=== PATIENT | female | born 1965 | race Caucasian/White ===

== ENCOUNTER → 2018-03-12 | Outpatient (CLI) | payer OTHER ==
--- NOTE | 2018-03-16 11:29 | MM ---
Reason for exam: screening (asymptomatic). Last mammogram was performed 5 years and 2 months ago. History: Family history of breast cancer in maternal aunt. Took hormonal contraceptives for 19 years beginning at age 17. Physical Findings: A clinical breast exam by your physician is recommended on an annual basis and results should be correlated with mammographic findings. MG Screening Mammo w CAD Bilateral CC and MLO view(s) were taken. Prior study comparison: January 06, 2013, bilateral digital screening mammo w/CAD. August 16, 2008, bilateral diagnostic digital mammog. The breast tissue is heterogeneously dense. This may lower the sensitivity of mammography. No suspicious abnormality. No significant changes when compared with prior studies. ASSESSMENT: Negative, BI-RAD 1 RECOMMENDATION: Routine screening mammogram of both breasts in 1 year.
== END | disposition home or self-care (01) ==
LOC: RADMAMWWP 16:36
PROVIDERS: ATTEND Family Medicine
DX: Z12.31 Encounter for screening mammogram for malignant neoplasm of breast (principal)
CPT/HCPCS: 77067

== ENCOUNTER → 2018-10-30 | Outpatient (CLI) | payer OTHER ==
--- NOTE | 2018-11-02 14:53 | MM ---
Reason for exam: screening (asymptomatic). Last mammogram was performed 8 months ago. History: Family history of breast cancer in maternal aunt. Took hormonal contraceptives for 19 years beginning at age 17. Physical Findings: A clinical breast exam by your physician is recommended on an annual basis and results should be correlated with mammographic findings. MG Screening Mammo w CAD Bilateral CC and MLO view(s) were taken. Prior study comparison: March 12, 2018, bilateral MG screening mammo w CAD. January 06, 2013, bilateral digital screening mammo w/CAD. The breast tissue is heterogeneously dense. This may lower the sensitivity of mammography. There is no discrete abnormality. No significant changes when compared with prior studies. ASSESSMENT: Negative, BI-RAD 1 RECOMMENDATION: Routine screening mammogram of both breasts in 1 year.
== END | disposition home or self-care (01) ==
LOC: RADMAMWWP 16:51
DX: Z12.31 Encounter for screening mammogram for malignant neoplasm of breast (principal)
CPT/HCPCS: 77067

== ENCOUNTER → 2022-09-05 | Outpatient (CLI) | payer OTHER ==
--- NOTE | 2022-09-06 15:59 | MM ---
Reason for Exam: Screening (asymptomatic). Last mammogram was performed 3 year(s) and 11 month(s) ago. Patient History: Menarche at age 13. First Full-Term at age 27. Postmenopausal. Patient has history of breast feeding. Currently using Progesterone, starting at age 55. Hormonal Contraceptives for 19 years from age 17 until age 36. Maternal aunt had breast cancer. Risk Values: Vivienne 5 year model risk: 1.4%. NCI Lifetime model risk: 8.9%. Prior Study Comparison: 01/06/2013 Bilateral Screening Mammogram, [facility]. 03/12/2018 Bilateral Screening Mammogram, [facility]. 10/30/2018 Bilateral Screening Mammogram, [facility]. Tissue Density: The breast tissue is heterogeneously dense. This may lower the sensitivity of mammography. Findings: Analyzed By CAD. Pattern appears symmetrical and stable. There is a focal area of increased density within the mid left mediolateral oblique view was not apparent on the prior exams. Additional workup is recommended. Overall Assessment: Incomplete: need additional imaging evaluation, BI-RAD 0 Management: Diagnostic Mammogram of the left breast. A negative mammogram report should not preclude additional follow up of suspicious palpable abnormalities. Patient should continue monthly self breast exam. A clinical breast exam by your physician is recommended on an annual basis and results should be correlated with mammographic findings. Electronically signed and approved by: Sean Cast D.O. Radiologis
== END | disposition home or self-care (01) ==
LOC: RADMAMWWP 07:43
DX: Z12.31 Encounter for screening mammogram for malignant neoplasm of breast (principal); Z78.0 Asymptomatic menopausal state; Z80.3 Family history of malignant neoplasm of breast
CPT/HCPCS: 77063; 77067

== ENCOUNTER → 2022-09-10 | Outpatient (CLI) | payer OTHER ==
--- NOTE | 2022-09-10 11:32 | MM ---
Reason for Exam: Additional evaluation requested from abnormal screening. Last screening mammogram was performed less than 1 month ago. Patient History: Menarche at age 13. First Full-Term at age 27. Postmenopausal. Patient has history of breast feeding. Currently using Progesterone, starting at age 55. Hormonal Contraceptives for 19 years from age 17 until age 36. Maternal aunt had breast cancer. Risk Values: Vivienne 5 year model risk: 1.4%. NCI Lifetime model risk: 8.9%. Prior Study Comparison: 03/12/2018 Bilateral Screening Mammogram, [facility]. 10/30/2018 Bilateral Screening Mammogram, [facility]. 09/05/2022 Bilateral MG 3D screening mammo w/cad, [facility]. Tissue Density: Left: The breast tissue is heterogeneously dense. This may lower the sensitivity of mammography. Findings: Analyzed By CAD. The asymmetry demonstrated within the left breast on the MLO view does not persist with compression view. Overall Assessment: Benign, BI-RAD 2 Management: Screening Mammogram of both breasts in 1 year. A clinical breast exam by your physician is recommended on an annual basis and results should be correlated with mammographic findings. This exam should not preclude additional follow-up of suspicious palpable abnormalities. Results were given to the patient verbally at the time of exam. Electronically signed and approved by: Abhijeet Medina D.O.
== END | disposition home or self-care (01) ==
LOC: RADMAMWWP 10:48
PROVIDERS: ATTEND Family Medicine
DX: R92.8 Other abnormal and inconclusive findings on diagnostic imaging of breast (principal); Z78.0 Asymptomatic menopausal state; Z80.3 Family history of malignant neoplasm of breast
CPT/HCPCS: 77061; 77065

== ENCOUNTER → 2023-06-19 | Outpatient (CLI) | payer OTHER ==
--- NOTE | 2023-06-20 14:16 | MR ---
EXAMINATION TYPE: MR knee LT wo con DATE OF EXAM: 06/19/2023 COMPARISON: NONE HISTORY: Left knee pain, locking and swelling for 4 months. TECHNIQUE: Multiplanar, multisequence images of the knee is performed without IV contrast. FINDINGS: MEDIAL MENISCUS: Anterior and posterior horns are intact without tear. LATERAL MENISCUS: Horizontal increased signal lateral meniscus coronal image 16 involves central body , does not definitively extend to articular surface. CRUCIATE LIGAMENTS: The anterior and posterior cruciate ligaments are intact and unremarkable. COLLATERAL LIGAMENTS: The medial collateral ligament and lateral collateral ligament complex are inta ct and unremarkable. EXTENSOR MECHANISM: Visualized quadriceps and patellar tendons are intact. EFFUSION: Small to moderate size suprapatellar joint effusion. POPLITEAL CYST: No popliteal/villatoro cyst. TRICOMPARTMENT SPACES: Mild to moderate tricompartment joint space loss with mild spurring, findings most prominent involving the patellofemoral compartment. CARTILAGE: Chondromalacia patella with significant cartilaginous loss along the posterior patellar po le. BONE MARROW SIGNAL: There is subchondral cystic change involving the central tibial plateau. OTHER: No additional significant abnormality is appreciated. IMPRESSION: 1. Intrasubstance tear central body of the lateral meniscus. No full-thickness meniscal or ligamentou s tear is seen. 2. Mild to moderate tricompartment degenerative changes most prominent patellofemoral compartment as detailed above. 3. Small to moderate size suprapatellar joint effusion.
== END | disposition home or self-care (01) ==
LOC: RADMRIMAIN 14:37
DX: M17.12 Unilateral primary osteoarthritis, left knee (principal); M23.301 Other meniscus derangements, unspecified lateral meniscus, left knee; M25.462 Effusion, left knee

== ENCOUNTER → 2023-09-03 | Outpatient (CLI) | payer OTHER ==
--- NOTE | 2023-09-04 13:04 | MR ---
EXAMINATION TYPE: MR brain wo/w con DATE OF EXAM: 09/03/2023 9:28 PM CLINICAL INDICATION:Female, 58 years old with history of R51.69; PHH, Headaches, vision problems COMPARISON: None TECHNIQUE: Multi planar, multi sequence imaging was performed through the brain including: T1, T2, In version recovery, susceptibility weighted imaging and gradient echo imaging and Diffusion weighted im aging. The patient was then given intravenous contrast and multi planar, T1 fat-saturation images wer e obtained. IV Contrast: 8 cc Gadavist FINDINGS: The mchugh-white junctions, ventricular system, basal cisterns appear unremarkable. Diffusion-weighted imaging shows no evidence of restricted diffusion to suggest acute/subacute infarct. Intracranial ar terial flow voids are maintained. Midline structures show no abnormality. Scattered foci of high T2 s ignal intensity are seen within the periventricular white matter. The susceptibility weighted images do not reveal any evidence for micro-hemorrhage. After administration of gadolinium, no abnormal enha ncement is seen. The bone marrow signal is within normal limits. Paranasal sinuses and mastoid air cells: No significant paranasal sinus disease. Visualized orbits: Orbital contents are intact. IMPRESSION: 1. No evidence of intracranial mass, acute/subacute infarct, or abnormal enhancement. 2. Nonspecific white matter changes, findings more than would be expected for patient age. Correlate for demyelination although it is not the classic pattern orthogonal to the lateral ventricles.
== END | disposition home or self-care (01) ==
LOC: RADMRIMAIN 20:45
DX: R90.82 White matter disease, unspecified (principal); R51.9 Headache, unspecified
CPT/HCPCS: 70553; A9585

== ENCOUNTER → 2023-09-11 | Outpatient (CLI) | payer OTHER ==
--- NOTE | 2023-09-15 19:27 | MM ---
Reason for Exam: Screening (asymptomatic). Last screening mammogram was performed 12 month(s) ago. Patient History: Menarche at age 13. First Full-Term at age 27. Postmenopausal. Patient has history of breast feeding. Currently using Progesterone, starting at age 55. Hormonal Contraceptives for 19 years from age 17 until age 36. Maternal aunt had breast cancer. Risk Values: Vivienne 5 year model risk: 1.4%. NCI Lifetime model risk: 8.7%. Prior Study Comparison: 10/30/2018 Bilateral Screening Mammogram, [facility]. 09/05/2022 Bilateral MG 3D screening mammo w/cad, [facility]. 09/10/2022 Left MG 3D work up w/cad , [facility]. Tissue Density: The breast tissue is heterogeneously dense. This may lower the sensitivity of mammography. Findings: Analyzed By CAD. Chronic nodularity on the right. Also, unchanged bilateral areas of asymmetric density. There is no suspicious group of microcalcifications or new suspicious mass in either breast. Overall Assessment: Benign, BI-RAD 2 Management: Screening Mammogram of both breasts in 1 year. . Patient should continue monthly self-breast exams. A clinical breast exam by your physician is recommended on an annual basis. This exam should not preclude additional follow-up of suspicious palpable abnormalities. Note on Vivienne scores and lifetime risk: 1. A Vivienne score greater than 3% is considered moderate risk. If this is the case, consider specialist referral to assess eligibility for a risk reducing agent. 2. If overall lifetime risk for the development of breast cancer is 20% or higher, the patient may qualify for future screening with alternating mammogram and breast MRI. Electronically signed and approved by: Jamal Dickson M.D. Radiologist
== END | disposition home or self-care (01) ==
LOC: RADMAMWWP 16:25
DX: Z12.31 Encounter for screening mammogram for malignant neoplasm of breast (principal); Z78.0 Asymptomatic menopausal state; Z80.3 Family history of malignant neoplasm of breast
CPT/HCPCS: 77063; 77067

== ENCOUNTER → 2023-11-13 | Outpatient (CLI) | payer OTHER ==
--- NOTE | 2023-11-14 07:50 | MR ---
EXAMINATION TYPE: MR angio head wo con DATE OF EXAM: 11/13/2023 3:00 PM COMPARISON: NONE HISTORY: Headaches, vision problems, family hx aneurysm. Three-dimensional obva-gn-tmaafe intracranial MRA was performed with multiple intensity projection im ages submitted and source data reviewed at the workstation. The vertebrobasilar system as well as intracranial portions of the internal carotid arteries and thei r major tributaries are patent. I do not see evidence for sizable aneurysm or vascular malformation. IMPRESSION: Normal study.
--- NOTE | 2023-11-14 08:17 | US ---
EXAMINATION TYPE: US carotid duplex BILAT DATE OF EXAM: 11/13/2023 COMPARISON: MRI 11/13/2023 CLINICAL INDICATION: Female, 58 years old with history of I67.9 Cerebrovascular small vessel disease; Family hx of TIA. Patient states they wanted to look at carotids after MRI TECHNIQUE: Carotid duplex ultrasound examination. Indirect Doppler criteria was utilized. FINDINGS: EXAM MEASUREMENTS: RIGHT: Peak Systolic Velocity (PSV) cm/sec ----- Right CCA: 69.1 ----- Right ICA: 95.3 ----- Right ECA: 104.0 ICA/CCA ratio: 1.4 RIGHT: End Diastole cm/sec ----- Right CCA: 28.5 ----- Right ICA: 38.3 ----- Right ECA: 16.5 LEFT: Peak Systolic Velocity (PSV) cm/sec ----- Left CCA: 75.2 ----- Left ICA: 96.0 ----- Left ECA: 94.9 ICA/CCA ratio: 1.3 LEFT: End Diastole cm/sec ----- Left CCA: 20.9 ----- Left ICA: 40.1 ----- Left ECA: 19.2 VERTEBRALS (direction of flow): Right Vertebral: Antegrade Left Vertebral: Antegrade Rhythm: Normal HANDY WORKER NOTES: No elevated velocities. No plaque or wall thickening. IMPRESSION: No significant hemodynamic stenosis Criteria for Assigning % of Stenosis / Diameter reduction (Estimation based on the indirect measurements of the internal carotid artery velocities (ICA PSV). 1. Normal (no stenosis)=ICA PSV < 125 cm/s: ratio < 2.0: ICA EDV<40 cm/s. 2. Less than 50% stenosis=ICA PSV < 125 cm/s: ratio < 2.0: ICA EDV<40 cm/s. 3. 50 to 69% stenosis=ICA PSV of 125 to 230 cm/s: ration 2.0 ? 4.0: ICA EDV 40-100 cm/s. 4. Greater than 70% stenosis to near occlusion= ICA PSV > 230 cm/s: ratio > 4.0: ICA EDV > 100 cm/s. 5. Near occlusion= ICA PSV velocities may be low or undetectable: variable ratio and ICA EDV. 6. Total occlusion=unable to detect flow.
== END | disposition home or self-care (01) ==
LOC: RADMRIMAIN 14:38
PROVIDERS: ATTEND Psychiatry & Neurology Neurology
DX: I67.9 Cerebrovascular disease, unspecified (principal); Z82.49 Family history of ischemic heart disease and other diseases of the circulatory system
CPT/HCPCS: 70544; 93880

== ENCOUNTER → 2023-12-25 | Outpatient (CLI) | payer OTHER ==
--- NOTE | 2023-12-25 12:47 | FL ---
EXAMINATION TYPE: FL barium swallow DATE OF EXAM: 12/25/2023 11:13 AM COMPARISON: Chest radiograph from same day. CLINICAL INDICATION:Female, 58 years old with history of R13.19 DYSPHAGIA; TECHNIQUE: The procedure was explained and patient history elicited. All patient questions were ans wered prior to start of procedure. Multiple spot fluoroscopic images of the esophagus were obtained a fter the oral ingestion of effervescent crystals and liquid barium as the contrast agent. Fluoroscopic time: 24 sec Fluoroscopic images: 0 Radiographs taken: 72 DAP: [id number] FINDINGS: The esophagus demonstrates normal primary and secondary peristalsis. Few scattered tertiary contracti ons visualized. The esophageal mucosa is smooth without evidence of focal stricture, ulceration, or a bnormal outpouching. No gastroesophageal reflux disease was identified. Small hiatal hernia is prese nt on prone imaging . IMPRESSION: 1. Small hiatal hernia. 2. Small amount of esophageal dysmotility.
== END | disposition home or self-care (01) ==
LOC: RADUSWWP 10:05
PROVIDERS: ATTEND Family Medicine
DX: K44.9 Diaphragmatic hernia without obstruction or gangrene (principal); K22.4 Dyskinesia of esophagus; R13.19 Other dysphagia
CPT/HCPCS: 74220

== ENCOUNTER 2024-03-10 09:55 | Emergency (ER) | payer OTHER, BC ==
--- NOTE | 2024-03-10 10:36 | ED ---
Weakness HPI - General Source: patient, RN notes reviewed Mode of arrival: ambulatory Limitations: no limitations - History of Present Illness MD Complaint: generalized weakness <Comfort Wang - Last Filed: 03/10/24 10:34> - General Source: RN notes reviewed, old records reviewed Mode of arrival: ambulatory Limitations: no limitations - History of Present Illness MD Complaint: generalized weakness, lack of energy, difficulty walking -: days(s) Location: generalized Severity: moderate Severity scale (1-10): 9 Quality: numbness, aching Consistency: constant Improves with: none Context: recent illness, history of similar Associated Symptoms: chest pain, confusion, nausea/vomiting, shortness of breath <Keyshawn Dowell - Last Filed: 03/21/24 17:37> - General Chief complaint: Weakness Stated complaint: elevated bp/dizzy Time Seen by Provider: 03/10/24 10:14 - History of Present Illness Initial comments: Quick Note: This is a 58-year-old female who presents to the emergency department for dizziness, weakness, and bodyaches. Symptoms started when she woke up this morning. States that she feels sore, nauseous and has headaches. Also states that her blood pressure is much higher than it usually is for her. It got up to the 160s systolically. (Comfort Wang) This is a 58-year-old female to the ER for evaluation patient presents today for evaluated for dizziness weakness body aches and pains chest pain back pain headache abdominal pain symptoms are severe here in the emergency department with significantly elevated blood pressure and states she feels very anxious (Keyshawn Dowell) - Related Data Home Medications Medication Instructions Recorded Confirmed Escitalopram [Lexapro] 10 mg PO DAILY 06/30/23 06/30/23 Meloxicam [Mobic] 7.5 mg PO BID PRN 06/30/23 06/30/23 Progesterone, Micronized 200 mg PO HS 06/30/23 06/30/23 [Progesterone] SUMAtriptan succinate [Imitrex] 50 mg PO BID PRN 06/30/23 06/30/23 valACYclovir HCL [Valtrex] 2,000 mg PO BID PRN 06/30/23 06/30/23 Allergies Allergy/AdvReac Type Severity Reaction Status Date / Time Penicillins Allergy Rash/Hives Verified 03/10/24 10:29 Review of Systems ROS Other: All systems not noted in ROS Statement are negative. <Comfort Wang - Last Filed: 03/10/24 10:34> ROS Other: All systems not noted in ROS Statement are negative. <Keyshawn Dowell - Last Filed: 03/21/24 17:37> ROS Statement: Those systems with pertinent positive or pertinent negative responses have been documented in the HPI. Past Medical History Past Medical History: No Reported History History of Any Multi-Drug Resistant Organisms: None Reported Past Surgical History: No Surgical Hx Reported Past Psychological History: Depression Smoking Status: Never smoker Past Alcohol Use History: Occasional Past Drug Use History: Marijuana <Comfort Wang - Last Filed: 03/10/24 10:34> General Exam Limitations: no limitations <Comfort Wang - Last Filed: 03/10/24 10:34> General appearance: alert, in no apparent distress Head exam: Present: atraumatic, normocephalic, normal inspection Eye exam: Present: normal appearance, PERRL, EOMI. Absent: scleral icterus, conjunctival injection, periorbital swelling ENT exam: Present: normal exam, mucous membranes moist Neck exam: Present: normal inspection. Absent: tenderness, meningismus, lymphadenopathy Respiratory exam: Present: normal lung sounds bilaterally. Absent: respiratory distress, wheezes, rales, rhonchi, stridor Cardiovascular Exam: Present: regular rate, normal rhythm, normal heart sounds. Absent: systolic murmur, diastolic murmur, rubs, gallop, clicks GI/Abdominal exam: Present: soft, normal bowel sounds. Absent: distended, tenderness, guarding, rebound, rigid Extremities exam: Present: normal inspection, full ROM, normal capillary refill. Absent: tenderness, pedal edema, joint swelling, calf tenderness Back exam: Present: normal inspection Neurological exam: Present: alert, oriented X3, CN II-XII intact Psychiatric exam: Present: normal affect, normal mood Skin exam: Present: warm, dry, intact, normal color. Absent: rash <Keyshawn Dowell - Last Filed: 03/21/24 17:37> - General Exam Comments Initial Comments: Visual Physical Exam Vital signs reviewed General: Well-appearing, nontoxic, no acute distress. Head: Normocephalic, atraumatic Eyes: PERRLA, EOMI ENT: Airway patent Chest: Nonlabored breathing Skin: No visual rash, normal skin tone Neuro: Alert and oriented 3 Musculoskeletal: No gross abnormalities (Comfort Wang) Course <Keyshawn Dowell - Last Filed: 03/21/24 17:37> Vital Signs 03/10/24 03/10/24 03/10/24 10:25 14:58 17:04 Temperature 98.2 F 98.2 F 98 F Pulse Rate 78 64 73 Respiratory 18 18 16 Rate Blood Pressure 147/102 154/100 166/98 O2 Sat by Pulse 98 99 98 Oximetry - Reevaluation(s) Reevaluation #1: Medical records reviewed (Keyshawn Dowell) Reevaluation #2: Patient symptoms improved (Keyshawn Dowell) Reevaluation #3: Patient informed of results and questions answered (Keyshawn Dowell) Reevaluation #4: Was pt. sent in by a medical professional or institution (, PA, FOREST BIOMETRICS PROFESSOR, urgent care, hospital, or retirement...) When possible be specific @ -no Did you speak to anyone other than the patient for history (EMS, parent, family, police, friend...)? What history was obtained from this source @ -no Did you review nursing and triage notes (agree or disagree)? Why? @ -agree Are old charts reviewed (outside hosp., previous admission, EMS record, old EKG, old radiological studies, urgent care reports/EKG's, retirement records)? Report findings @ -yes Differential Diagnosis (chest pain, altered mental status, abdominal pain women, abdominal pain men, vaginal bleeding, weakness, fever, dyspnea, syncope, heada leonidas, dizziness, GI bleed, back pain, seizure, CVA, palpatations, mental health, musculoskeletal)? @ -prior EKG interpreted by me (3pts min.). @ -yes X-rays interpreted by me (1pt min.). @ -yes negative for acute disease CT interpreted by me (1pt min.). @ -Yes negative for acute disease U/S interpreted by me (1pt. min.). @ -no What testing was considered but not performed or refused? (CT, X-rays, U/S, labs)? Why? @ -none What meds were considered but not given or refused? Why? @ -none Did you discuss the management of the patient with other professionals (professionals i.e. , PA, FOREST BIOMETRICS PROFESSOR, lab, RT, psych nurse, social scientist, oil well shooter, teacher, medical officer psychiatry, adult protective caseworker)? Give summary @ -no Was smoking cessation discussed for >3mins.? @ -no Was critical care preformed (if so, how long)? @ -no Were there social determinants of health that impacted care today? How? (Homelessness, low income, unemployed, alcoholism, drug addiction, transportation, low edu. Level, literacy, decrease access to med. care, [facility], rehab)? @ -none Was there de-escalation of care discussed even if they declined (Discuss DNR or withdrawal of care, Hospice)? DNR status @ -no What co-morbidities impacted this encounter? (DM, HTN, Smoking, COPD, CAD, Cancer, CVA, ARF, Chemo, Hep., AIDS, mental health diagnosis, sleep apnea, morbid obesity)? @ -none Was patient admitted / discharged? Hospital course, mention meds given and route, prescriptions, significant lab abnormalities, going to OR and other pertinent info. @ - 58 female to the ER for evaluation today of weakness abdominal pain and does have positive kidney stone. Patient has no other acute symptoms found pain is improved and patient can be discharged home Discharge Undiagnosed new problem with uncertain prognosis? @ -no Drug Therapy requiring intensive monitoring for toxicity (Heparin, Nitro, Insulin, Cardizem)? @ -no Were any procedures done? @ -no Diagnosis/symptom? @ -Chest pain abdominal pain kidney stone Acute, or Chronic, or Acute on Chronic? @ -Acute Uncomplicated (without systemic symptoms) or Complicated (systemic symptoms)? @ -Complicated Side effects of treatment? @ -no Exacerbation, Progression, or Severe Exacerbation? @ -exacerbation Poses a threat to life or bodily function? How? (Chest pain, USA, CT, pneumonia, PE, COPD, DKA, ARF, appy, cholecystitis, CVA, Diverticulitis, Homicidal, Suicidal, threat to staff... and all critical care pts) @ -yes significant chest pain (Keyshawn Dowell) Reevaluation #5: Differential Weakness: Hypoglycemia, shock, sepsis, hyponatremia, anemia, infection, CT, ETOH, adverse medicine reaction, overdose, stroke, this is not meant to be an all-inclusive list. (Keyshawn Dowell) Medical Decision Making <Comfort Wang - Last Filed: 03/10/24 10:34> - Lab Data Result diagrams: 03/10/24 10:35 03/10/24 10:35 - Radiology Data Radiology results: report reviewed (Chest x-ray with CTA chest abdomen pelvis negative for acute disease), image reviewed <Keyshawn Dowell - Last Filed: 03/21/24 17:37> - Medical Decision Making I performed the QuickNote portion of this chart. Signed Comfort Wang PA-C. (Comfort Wang) 58 female to the ER for evaluation today of weakness abdominal pain and does have positive kidney stone. Patient has no other acute symptoms found pain is improved and patient can be discharged home (Keyshawn Dowell) - Lab Data Lab Results 03/10/24 03/10/24 03/10/24 Range/Units 10:35 10:35 10:35 WBC 5.9 (3.8-10.6) k/uL RBC 4.54 (3.80-5.40) m/uL Hgb 13.8 (11.4-16.0) gm/dL Hct 40.1 (34.0-46.0) % MCV 88.3 (80.0-100.0) fL MCH 30.4 (25.0-35.0) pg MCHC 34.4 (31.0-37.0) g/dL RDW 12.5 (11.5-15.5) % Plt Count 241 (150-450) k/uL MPV 8.5 Neutrophils % 58 % Lymphocytes % 33 % Monocytes % 5 % Eosinophils % 1 % Basophils % 1 % Neutrophils # 3.4 (1.3-7.7) k/uL Lymphocytes # 1.9 (1.0-4.8) k/uL Monocytes # 0.3 (0-1.0) k/uL Eosinophils # 0.1 (0-0.7) k/uL Basophils # 0.1 (0-0.2) k/uL Sodium 138 (137-145) mmol/L Potassium 3.9 (3.5-5.1) mmol/L Chloride 106 (98-107) mmol/L Carbon Dioxide 25 (22-30) mmol/L Anion Gap 7 mmol/L BUN 17 (7-17) mg/dL Creatinine 0.69 (0.52-1.04) mg/dL Est GFR (CKD-EPI)AfAm >90 (>60 ml/min/1.73 sqM) Est GFR (CKD-EPI)NonAf >90 (>60 ml/min/1.73 sqM) Glucose 90 (74-99) mg/dL Calcium 9.2 (8.4-10.2) mg/dL Magnesium 1.6 (1.6-2.3) mg/dL Total Bilirubin 0.6 (0.2-1.3) mg/dL AST 30 (14-36) U/L ALT 30 (4-34) U/L Alkaline Phosphatase 74 (38-126) U/L Troponin I (0.000-0.034) ng/mL Total Protein 6.9 (6.3-8.2) g/dL Albumin 4.1 (3.5-5.0) g/dL Urine Color Urine Appearance (Clear) Urine pH (5.0-8.0) Ur Specific Lillie (1.001-1.035) Urine Protein (Negative) Urine Glucose (UA) (Negative) Urine Ketones (Negative) Urine Blood (Negative) Urine Nitrite (Negative) Urine Bilirubin (Negative) Urine Urobilinogen (<2.0) mg/dL Ur Leukocyte Esterase (Negative) Urine RBC (0-5) /hpf Urine WBC (0-5) /hpf Ur Squamous Epith Cells (0-4) /hpf Urine Bacteria (None) /hpf Influenza Type A (PCR) Not Detected (Not Detectd) Influenza Type B (PCR) Not Detected (Not Detectd) RSV (PCR) Not Detected (Not Detectd) SARS-CoV-2 (PCR) Not Detected (Not Detectd) 03/10/24 03/10/24 Range/Units 10:36 10:36 WBC (3.8-10.6) k/uL RBC (3.80-5.40) m/uL Hgb (11.4-16.0) gm/dL Hct (34.0-46.0) % MCV (80.0-100.0) fL MCH (25.0-35.0) pg MCHC (31.0-37.0) g/dL RDW (11.5-15.5) % Plt Count (150-450) k/uL MPV Neutrophils % % Lymphocytes % % Monocytes % % Eosinophils % % Basophils % % Neutrophils # (1.3-7.7) k/uL Lymphocytes # (1.0-4.8) k/uL Monocytes # (0-1.0) k/uL Eosinophils # (0-0.7) k/uL Basophils # (0-0.2) k/uL Sodium (137-145) mmol/L Potassium (3.5-5.1) mmol/L Chloride (98-107) mmol/L Carbon Dioxide (22-30) mmol/L Anion Gap mmol/L BUN (7-17) mg/dL Creatinine (0.52-1.04) mg/dL Est GFR (CKD-EPI)AfAm (>60 ml/min/1.73 sqM) Est GFR (CKD-EPI)NonAf (>60 ml/min/1.73 sqM) Glucose (74-99) mg/dL Calcium (8.4-10.2) mg/dL Magnesium (1.6-2.3) mg/dL Total Bilirubin (0.2-1.3) mg/dL AST (14-36) U/L ALT (4-34) U/L Alkaline Phosphatase (38-126) U/L Troponin I <0.012 (0.000-0.034) ng/mL Total Protein (6.3-8.2) g/dL Albumin (3.5-5.0) g/dL Urine Color Colorless Urine Appearance Clear (Clear) Urine pH 6.0 (5.0-8.0) Ur Specific Lillie 1.002 (1.001-1.035) Urine Protein Negative (Negative) Urine Glucose (UA) Negative (Negative) Urine Ketones Trace H (Negative) Urine Blood Trace H (Negative) Urine Nitrite Negative (Negative) Urine Bilirubin Negative (Negative) Urine Urobilinogen <2.0 (<2.0) mg/dL Ur Leukocyte Esterase Moderate H (Negative) Urine RBC 2 (0-5) /hpf Urine WBC 8 H (0-5) /hpf Ur Squamous Epith Cells 2 (0-4) /hpf Urine Bacteria Rare H (None) /hpf Influenza Type A (PCR) (Not Detectd) Influenza Type B (PCR) (Not Detectd) RSV (PCR) (Not Detectd) SARS-CoV-2 (PCR) (Not Detectd) Disposition <Comfort Wang - Last Filed: 03/10/24 10:34> Is patient prescribed a controlled substance at d/c from ED?: No Time of Disposition: 16:45 <Keyshawn Dowell - Last Filed: 03/21/24 17:37> Clinical Impression: Kidney stone, Pain, Chest pain, Abdominal pain Disposition: HOME SELF-CARE Condition: Good Instructions (If sedation given, give patient instructions): Kidney Stones (ED) Referrals: [facility],Clinic [Primary Care Provider] - 1-2 days
[2024-03-10 11:15] LABS: Basophils # (A) 0.1 k/uL (0-0.2); Basophils % (A) 1 %; Eosinophils # (A) 0.1 k/uL (0-0.7); Eosinophils % (A) 1 %; HCT 40.1 % (34.0-46.0); HGB 13.8 gm/dL (11.4-16.0); Lymphocytes # (A) 1.9 k/uL (1.0-4.8); Lymphocytes % (A) 33 %; MCH 30.4 pg (25.0-35.0); MCHC 34.4 g/dL (31.0-37.0); MCV 88.3 fL (80.0-100.0); Mean Platelet Volume 8.5; Monocytes # (A) 0.3 k/uL (0-1.0); Monocytes % (A) 5 %; Neutrophils # (A) 3.4 k/uL (1.3-7.7); Neutrophils % (A) 58 %; Platelet Count 241 k/uL (150-450); RBC 4.54 m/uL (3.80-5.40); RDW 12.5 % (11.5-15.5); WBC 5.9 k/uL (3.8-10.6)
--- NOTE | 2024-03-10 11:21 | XR ---
EXAMINATION TYPE: XR chest 2V DATE OF EXAM: 03/10/2024 11:15 AM CLINICAL INDICATION:Female, 58 years old with history of Weakness; COMPARISON: None TECHNIQUE: XR chest 2V Frontal and lateral views of the chest. FINDINGS: Lungs/Pleura: There is no evidence of pleural effusion, focal consolidation, or pneumothorax. Pulmonary vascularity: Unremarkable. Heart/mediastinum: Cardiomediastinal silhouette is unremarkable. Musculoskeletal: No acute osseous pathology. IMPRESSION: No acute cardiopulmonary disease/process.
[2024-03-10 11:25] LABS: ALT 30 U/L (4-34); AST 30 U/L (14-36); African American GFR (CKD) >90 (>60 ml/min/1.73 sqM); Albumin 4.1 g/dL (3.5-5.0); Alkaline Phosphatase 74 U/L (38-126); Anion Gap 7 mmol/L; Blood Urea Nitrogen 17 mg/dL (7-17); Calcium 9.2 mg/dL (8.4-10.2); Carbon Dioxide 25 mmol/L (22-30); Chloride 106 mmol/L (98-107); Glucose 90 mg/dL (74-99); Magnesium 1.6 mg/dL (1.6-2.3); Non-African American GFR(CKD) >90 (>60 ml/min/1.73 sqM); Potassium 3.9 mmol/L (3.5-5.1); Sodium 138 mmol/L (137-145); Total Bilirubin 0.6 mg/dL (0.2-1.3); Total Protein 6.9 g/dL (6.3-8.2)
[2024-03-10 11:30] LABS: Appearance,Urine Clear (Clear); Bacteria,Urine Rare /hpf; Bilirubin,Urine Negative (Negative); Blood,Urine Trace (Negative); Color,Urine Colorless; Glucose,Urine (UA) Negative (Negative); Ketones,Urine Trace (Negative); Leukocyte Esterase,Urine Moderate (Negative); Nitrite,Urine Negative (Negative); Protein,Urine Negative (Negative); RBC,Urine 2 /hpf (0-5); Specific Gravity,Urine 1.002 (1.001-1.035); Squamous Epithelial Cell,Urine 2 /hpf (0-4); Urobilinogen,Urine <2.0 mg/dL (<2.0); WBC,Urine 8 /hpf (0-5)
[2024-03-10] MEDS: SODIUM CHLORIDE 0.9% 1,000 ML IV STA (15:54)
[2024-03-10] MEDS: KETOROLAC 15 MG/ML 1 ML VIAL IVP STA (15:58)
--- NOTE | 2024-03-10 16:41 | CT ---
EXAMINATION TYPE: CT angio chest CT DLP: 1097.8 mGycm, Automated exposure control for dose reduction was used. DATE OF EXAM: 03/10/2024 4:18 PM COMPARISON: Chest radiograph from same day. CLINICAL INDICATION:Female, 58 years old with history of sob; Right flank pain and hematuria. TECHNIQUE/CONTRAST: CTA scan of the thorax is performed with IV Contrast, patient injected with 100ml mL of Isovue 300, M IP images are created and reviewed these are created on a separate workstation.. FINDINGS: Pulmonary Artery: There is no evidence for a filling defect within the pulmonary vasculature to sugge st acute pulmonary embolism. The pulmonary artery is of normal size. Lungs/Pleura: No evidence of focal consolidation, pleural effusion or pneumothorax. Airway: Large airways are patent. Heart: Heart is within normal limits for size. Vasculature: No evidence of aortic aneurysm. Mediastinum: No gross evidence of adenopathy. Musculoskeletal: No acute osseous abnormalities Soft Tissues/lymph nodes: Unremarkable. Lower neck: No significant findings. IMPRESSION: No evidence of pulmonary embolism.
--- NOTE | 2024-03-10 16:45 | CT ---
EXAMINATION TYPE: CT abdomen pelvis w con CT DLP: 1097.8 mGycm, Automated exposure control for dose reduction was used. DATE OF EXAM: 03/10/2024 4:20 PM COMPARISON: None. CLINICAL INDICATION:Female, 58 years old with history of sob; abdominal pain and SOB TECHNIQUE: Axial CT abdomen pelvis w con;Sagittal and coronal reformats were created on a separate w orkstation. Contrast used:100ml mL of Isovue 300 with IV Contrast, (none if empty) Oral contrast used: without Oral Contrast (none if empty) FINDINGS: LOWER CHEST: Unremarkable ABDOMEN LIVER: Unremarkable GALLBLADDER AND BILE DUCTS: Unremarkable. PANCREAS: Unremarkable. SPLEEN: Unremarkable. ADRENAL GLANDS: Unremarkable. KIDNEYS AND URETERS: Nonobstructing left 3 mm thickness. No left hydronephrosis. Mild dilation of the right renal collecting system which is slightly asymmetric. No right renal calculus. PELVIS BLADDER: Unremarkable REPRODUCTIVE: Unremarkable. ABDOMEN & PELVIS STOMACH AND BOWEL: No evidence of bowel obstruction. The appendix is normal. Scattered colonic divert icula. PERITONEUM/RETROPERITONEUM: No evidence of pneumoperitoneum or free fluid. Surgical clip in the right adnexa. VASCULATURE: No evidence of aortic aneurysm. MUSCULOSKELETAL: No acute osseous abnormalities LYMPH NODES: No gross evidence for lymphadenopathy. SOFT TISSUE/ABDOMINAL WALL: Unremarkable IMPRESSION: 1. No evidence for obstructive uropathy or right renal calculus. There is mild dilation of the right collecting system possibly secondary to recently passed stone. 2. Nonobstructing left renal calculus. 3. The appendix is normal. 4. Colonic diverticulosis.
[2024-03-10 17:09] VITALS: BP 166/98; PULSE 73; RESP 16; TEMP 98
== END 2024-03-10 17:14 | disposition home or self-care (01) ==
LOC: EC 09:55
DX: N20.0 Calculus of kidney (principal); F12.90 Cannabis use, unspecified, uncomplicated; Z88.0 Allergy status to penicillin; Z11.52 Encounter for screening for COVID-19
CPT/HCPCS: 36415; 93005; 80053; 83735; 84484; 85025; 81001; 87636; 71046; 71275; 74177; 99285; 96374; 96361; J1885; Q9967